=== PATIENT | female | born 1975 | race Caucasian/White ===

== ENCOUNTER 2020-11-04 06:12 | Outpatient (REF) | payer OTHER, SELFPAY ==
[2020-11-04 07:02] LABS: MANUAL DIFF FLAG NO
[2020-11-04 07:12] LABS: Basophils Percent Auto 0.6 % (0-2); Eosinophils Absolute Auto 0.1 X10*3/uL (0.0-0.4); Eosinophils Percent Auto 2.2 % (0-4); Hematocrit 43.7 % (37-47); Hemoglobin 14.5 g/dl (12.0-16.0); Imm Gran Abs Auto 0.01 X10*3/uL (0.00-0.03); Imm Gran Pct Auto 0.2 % (0.0-0.4); Lymphocytes Absolute Auto 1.4 X10*3/uL (1.2-4.9); Lymphocytes Percent Auto 28.1 % (20-40); Mean Corpuscular HGB Conc 33.2 g/dl (31.0-35.0); Mean Corpuscular Hemoglobin 29.2 pg (27.0-33.0); Mean Corpuscular Volume 88.1 fL (80-98); Mean Platelet Volume 11.3 fL (9.4-12.3); Monocytes Absolute Auto 0.5 X10*3/uL (0.1-1.2); Monocytes Percent Auto 9.1 % (2-11); Neutrophils Percent Auto 59.8 % (45-73); Platelet Count 225 X10*3/uL (160-400); Red Blood Count 4.96 X10*6/uL (4.20-5.50); Red Cell Distribution Width 12.2 % (11.0-16.0); White Blood Count 5.1 X10*3/uL (4.8-10.8)
[2020-11-04 07:15] LABS: Prothrombin Time 11.5 SEC (10.8-13.0)
[2020-11-04 07:17] LABS: Partial Thromboplastin Time 43.4 SEC (24.1-38.0)
[2020-11-04 07:56] LABS: HBc Num1 0.09 S/CO (0.00-0.79); HBsAGNum1 0.29 S/CO (0.00-0.99); HIV AB/AG Nonreactive (Nonreactive); HIV Num 1 0.09 S/CO (0.00-0.99); Hepatitis B Core Antibody Nonreactive (Nonreactive); Hepatitis B Surface Antigen Negative (Negative); ~HepC Num1 0.14 S/CO (0.00-0.79); ~Hepatitis B Surface Antibody NONREACTIVE (Nonreactive); ~Hepatitis C Antibody Nonreactive (Nonreactive)
[2020-11-05 04:10] LABS: Hepatitis A Antibody IgM 0.12 Index (0-0.79); ~Hepatitis A Antibody IgM Nonreactive (Nonreactive)
[2020-11-10 13:11] LABS: Smooth Muscle Antibody <20 U (<20)
== END 2020-11-04 06:13 | disposition home or self-care (01) ==
LOC: HO.LAB 06:12
PROVIDERS: PCP Hospitalist; Visit Provider Plastic Surgery
DX: Z01.818 Encounter for other preprocedural examination (principal); Z20.822 Contact with and (suspected) exposure to COVID-19
CPT/HCPCS: 36415; 85025; 85610; 85730; 86255; 86704; 86706; 86709; 86803; 87340; 87389; U0003; U0005

== ENCOUNTER → 2021-02-02 09:44 | Outpatient (BNVA) | payer OTHER, SELFPAY | PROVIDERS: PCP Family Medicine; Visit Provider Surgery | DX: R19.09 Other intra-abdominal and pelvic swelling, mass and lump (principal) | CPT/HCPCS: 99202 ==

== ENCOUNTER 2021-02-23 08:21 | Outpatient (REF) | payer OTHER, SELFPAY ==
--- NOTE | 2021-02-23 08:35 | ECG_ITS ---
Test Reason : PREPROC EXAM Blood Pressure : / mmHG Vent. Rate : 087 BPM Atrial Rate : 087 BPM P-R Int : 118 ms QRS Dur : 090 ms QT Int : 338 ms P-R-T Axes : 058 043 029 degrees QTc Int : 406 ms Normal sinus rhythm Normal ECG No previous ECGs available Referred By: Talia Juárez Electronically Signed By:Chidi Javier
[2021-02-23 09:12] LABS: MANUAL DIFF FLAG NO
[2021-02-23 09:20] LABS: Basophils Percent Auto 0.5 % (0-2); Eosinophils Absolute Auto 0.1 X10*3/uL (0.0-0.4); Eosinophils Percent Auto 2.5 % (0-4); Hematocrit 42.5 % (37-47); Hemoglobin 14.1 g/dl (12.0-16.0); Lymphocytes Absolute Auto 1.2 X10*3/uL (1.2-4.9); Lymphocytes Percent Auto 21.5 % (20-40); Mean Corpuscular HGB Conc 33.2 g/dl (31.0-35.0); Mean Corpuscular Hemoglobin 28.8 pg (27.0-33.0); Mean Corpuscular Volume 86.7 fL (80-98); Mean Platelet Volume 11.3 fL (9.4-12.3); Monocytes Absolute Auto 0.4 X10*3/uL (0.1-1.2); Monocytes Percent Auto 6.6 % (2-11); Neutrophils Absolute Auto 3.8 X10*3/uL (2.0-8.3); Neutrophils Percent Auto 68.9 % (45-73); Platelet Count 205 X10*3/uL (160-400); Red Cell Distribution Width 12.3 % (11.0-16.0); White Blood Count 5.6 X10*3/uL (4.8-10.8)
[2021-02-23 09:22] LABS: Prothrombin Time 11.8 SEC (10.8-13.0)
[2021-02-23 09:26] LABS: Partial Thromboplastin Time 44.5 SEC (24.1-38.0)
[2021-02-23 10:07] LABS: HBS Num1 0.27 mIU/mL (0-7.99); HIV AB/AG Nonreactive (Nonreactive); HIV Num 1 0.05 S/CO (0.00-0.99); Hepatitis A Antibody IgM 0.15 Index (0-0.79); Hepatitis B Core Antibody Nonreactive (Nonreactive); ~HepC Num1 0.12 S/CO (0.00-0.79); ~Hepatitis A Antibody IgM Nonreactive (Nonreactive); ~Hepatitis B Surface Antibody NONREACTIVE (Nonreactive); ~Hepatitis C Antibody Nonreactive (Nonreactive)
[2021-02-23 10:14] LABS: HBsAGNum1 0.24 S/CO (0.00-0.99); Hepatitis B Surface Antigen Negative (Negative)
== END 2021-02-23 08:22 | disposition home or self-care (01) ==
LOC: HO.LAB 08:21
PROVIDERS: PCP Family Medicine; Visit Provider Plastic Surgery
DX: Z01.812 Encounter for preprocedural laboratory examination (principal)
CPT/HCPCS: 36415; 85025; 85610; 85730; 86704; 86706; 86709; 86803; 87340; 87389; 93005

== ENCOUNTER 2021-03-24 08:27 | Outpatient (REF) | payer OTHER, SELFPAY ==
--- NOTE | ~2021-03-24 | CT_ITS ---
EXAMINATION: CT ABDOMEN WITHOUT CONTRAST CLINICAL INFORMATION: Intra-abdominal and pelvic swelling, mass or lump COMPARISON: None TECHNIQUE: Contiguous axial thin section helical images of the abdomen were performed without contrast. The data set was reformatted in the coronal and sagittal planes and reviewed on an independent workstation. This CT examination was performed using dose optimization techniques as appropriate, variously including the following: *Automated exposure control *Adjustment of mA and/or kV according to patient size (this includes techniques or standardized protocols for targeted exams where dose is matched to indication/reason for exam; i.e. extremities or head) *Use of iterative reconstruction technique DLP: 232 mGy-cm FINDINGS: LUNG BASES: The lung bases are clear. LIVER, GALLBLADDER, BILIARY TREE: Normal. PANCREAS: Normal SPLEEN: Normal ADRENAL GLANDS AND KIDNEYS: Normal. BOWEL LOOPS: There is stool throughout the colon questionable for constipation. Small and large bowel is otherwise unremarkable. There is no evidence of obstruction. The appendix is not seen. The stomach is filled with food. There are postsurgical changes to the anterior abdominal wall. No hernia is seen. LYMPH NODES: Normal. VASCULAR: Unremarkable. BONES: There is degenerative disc disease at L5-S1. CT/CT abdomen wo con IMPRESSION: No mass seen. Large amount of stool in the colon suggestive of constipation. Otherwise unremarkable exam.
== END 2021-03-24 08:28 | disposition home or self-care (01) ==
LOC: HO.CT 08:27
PROVIDERS: Visit Provider Surgery
DX: R19.09 Other intra-abdominal and pelvic swelling, mass and lump (principal)
CPT/HCPCS: 74150

== ENCOUNTER 2021-05-05 09:24 | Outpatient (REF) | payer OTHER, SELFPAY ==
[2021-05-05 11:26] LABS: MANUAL DIFF FLAG NO
[2021-05-05 11:37] LABS: Basophils Percent Auto 0.6 % (0-2); Eosinophils Absolute Auto 0.1 X10*3/uL (0.0-0.4); Eosinophils Percent Auto 1.9 % (0-4); Hematocrit 40.3 % (37-47); Hemoglobin 13.2 g/dl (12.0-16.0); Imm Gran Abs Auto 0.01 X10*3/uL (0.00-0.03); Imm Gran Pct Auto 0.2 % (0.0-0.4); Lymphocytes Absolute Auto 1.1 X10*3/uL (1.2-4.9); Lymphocytes Percent Auto 23.8 % (20-40); Mean Corpuscular HGB Conc 32.8 g/dl (31.0-35.0); Mean Corpuscular Hemoglobin 29.1 pg (27.0-33.0); Mean Platelet Volume 11.9 fL (9.4-12.3); Monocytes Absolute Auto 0.3 X10*3/uL (0.1-1.2); Monocytes Percent Auto 6.1 % (2-11); Neutrophils Absolute Auto 3.2 X10*3/uL (2.0-8.3); Neutrophils Percent Auto 67.4 % (45-73); Platelet Count 211 X10*3/uL (160-400); Red Blood Count 4.53 X10*6/uL (4.20-5.50); Red Cell Distribution Width 12.2 % (11.0-16.0); White Blood Count 4.8 X10*3/uL (4.8-10.8)
[2021-05-05 11:41] LABS: Prothrombin Time 11.5 SEC (9.9-13.0)
[2021-05-05 12:04] LABS: Alanine Aminotransferase 16 U/L (0-31); Albumin Level 4.2 g/dL (3.5-5.0); Alkaline Phosphatase 79 U/L (39-117); Anion Gap 12 (12-20); Aspartate Amino Transferase 18 U/L (5-31); Bilirubin Total 0.7 mg/dL (0.0-1.0); Blood Urea Nitrogen 12 mg/dL (9-16); Calcium 9.3 mg/dL (8.4-10.2); Carbon Dioxide 28 mmol/L (22-29); Chloride 105 mmol/L (96-108); Estimated Glomerular Filt Rate > 60; Glucose Random 100 mg/dL (60-115); Potassium 4.4 mmol/L (3.3-5.1); Sodium 141 mmol/L (135-145); Total Protein 7.1 g/dL (6.5-8.0)
[2021-05-05 12:24] LABS: HBS Num1 0.28 mIU/mL (0-7.99); ~Hepatitis B Surface Antibody NONREACTIVE (Nonreactive)
[2021-05-05 12:52] LABS: HBc Num1 0.22 S/CO (0.00-0.79); HBsAGNum1 0.17 S/CO (0.00-0.99); HIV AB/AG Nonreactive (Nonreactive); HIV Num 1 0.06 S/CO (0.00-0.99); Hepatitis B Core Antibody Nonreactive (Nonreactive); Hepatitis B Surface Antigen Negative (Negative); ~HepC Num1 0.22 S/CO (0.00-0.79); ~Hepatitis C Antibody Nonreactive (Nonreactive)
[2021-05-12 01:16] LABS: HPV mRNA E6/E7 rflx Not Detected (Not Detected)
== END 2021-05-05 09:25 | disposition home or self-care (01) ==
LOC: HO.WFDLDS 09:24
PROVIDERS: Visit Provider Family Medicine
DX: Z01.810 Encounter for preprocedural cardiovascular examination (principal); Z11.3 Encounter for screening for infections with a predominantly sexual mode of transmission
CPT/HCPCS: 36415; 80053; 85025; 85610; 85730; 86704; 86706; 86803; 87340; 87389; 87624; 88142

== ENCOUNTER 2022-02-23 06:42 | Outpatient (REF) | payer OTHER, SELFPAY ==
--- NOTE | ~2022-02-23 | XR_ITS ---
EXAMINATION: XR CHEST CLINICAL INFORMATION: Cough COMPARISON: None TECHNIQUE: 2 views of the chest were obtained. FINDINGS: No significant abnormality is noted involving the heart, lungs, mediastinum, bony thorax or soft tissues. XR/XR chest 2V IMPRESSION: Unremarkable examination.
== END 2022-02-23 06:43 | disposition home or self-care (01) ==
LOC: HO.XRAY 06:42
PROVIDERS: PCP Family Medicine; Visit Provider Family Medicine
DX: R05.9 Cough, unspecified (principal); J45.909 Unspecified asthma, uncomplicated
CPT/HCPCS: 71046

== ENCOUNTER 2022-04-05 13:27 | Outpatient (REF) | payer OTHER, SELFPAY | END 2022-04-05 13:28 | disposition home or self-care (01) | LOC: HO.LNP 13:27 | PROVIDERS: Visit Provider Hospitalist | DX: J02.9 Acute pharyngitis, unspecified (principal) | CPT/HCPCS: 87071 ==

== ENCOUNTER 2023-03-23 11:37 | Outpatient (REF) | payer OTHER, SELFPAY | END 2023-03-23 11:38 | disposition home or self-care (01) | LOC: HO.LAB 11:37 | PROVIDERS: Visit Provider Nurse Practitioner Family | DX: Z13.89 Encounter for screening for other disorder (principal) ==

== ENCOUNTER 2023-03-23 14:10 | Outpatient (REF) | payer OTHER, SELFPAY ==
[2023-03-23 15:18] LABS: Appearance Urine Cloudy; Color Urine Yellow; Glucose Urine UA Negative (Negative); Leukocyte Esterase Urine Large (3+) (Negative); Nitrite Urine Negative (Negative); Specific Gravity - Urine <= 1.005 (1.005-1.025); UMIC TRIGGER UACC YES; Urine Blood Small (1+) (Negative); Urine Ketones Negative (Negative); Urine Protein Negative (Neg-Trace)
[2023-03-23 15:34] LABS: Bacteria Urine 2+ (None Seen); Hyaline Casts Urine 0-2 /LPF (0-2); UACC Culture Trigger YES; WBC Urine 21-50 /HPF (0-5)
== END 2023-03-23 14:11 | disposition home or self-care (01) ==
LOC: HO.LNP 14:10
PROVIDERS: Visit Provider Nurse Practitioner Family
DX: R39.9 Unspecified symptoms and signs involving the genitourinary system (principal)
CPT/HCPCS: 81001; 81003; 87086; 87088; 87186

== ENCOUNTER 2023-07-03 09:48 | Outpatient (AMB) | payer OTHER, SELFPAY ==
--- NOTE | 2023-07-03 09:22 | MHC.PC.OV ---
Vital Signs 07/03/23 09:52 Height 5 ft 3 in Weight 154 lb 4 oz BMI 27.3 BP 100/70 Blood Pressure Location Lt brachial Position Sitting Respiration 13 Pulse 91 Pulse Source Pulse Oximeter Temp 97 F Temp Source Temporal Artery Scan Pulse Oximetry (%) 99 Oxygen Delivery Method Room Air Intake Visit Reasons: itching and burning Intake Note: Patient states that she woke up and was experiencing a vaginal itch and burn. Patienty states she everything OTC and nothing has worked. Relocation Coordinator Required: No Accompanied by: Self / Same As Patient Allergies Sulfa (Sulfonamide Antibiotics) [SULFA (SULFONAMIDE ANTIBIOTICS)] Allergy (Unknown, Verified 07/03/23 10:21) UNKNOWN cats Allergy (Unknown, Uncoded 07/03/23 10:21) hives dairy Allergy (Unknown, Uncoded 07/03/23 10:21) Diarrhea Medication List - Last Reconciled 07/03/23 by Juanita Lay CNP albuterol sulfate 90 mcg/actuation (ProAir HFA) 2 puffs inhalation Q4-6H PRN 1 month Flovent HFA 110 mcg/actuation (fluticasone propionate) 1 puff inhalation Q12H NS fluticasone propionate 50 mcg/actuation (Flonase Allergy Relief) 1 spray intranasal Q12H 30 days meloxicam 15 mg PO DAILY 30 days silver sulfadiazine 1% (Silvadene) 1 appl topical BID 10 days Tobacco use date assessed: 07/03/23 Dental Screening Dental Screen Date: 07/03/23 Did you have a dental visit in the last 12 months?: Yes Did you have a dental problem in the last 6 months where you did not have access to dental care?: No Was dental information given to patient?: Patient has dentist HPI HPI Comments History of Present Illness Details 48-year-old female presents with complaints of vaginal burning and intense itching. Her symptoms have been ongoing for the past 3 days and have not responded to [id number] remedies including Monistat. She notes she was recently treated for UTI with Augmentin. No pain/burning with urination, no blood in the urine, no urinary frequency, urgency, or hesitancy. No vaginal discharge. No fever, chills, body aches, fatigue, or weakness. She was treated for UTI on 03/23/2023 with Macrobid. [facility] Medical History Umbilical mass Surgical History History of tonsillectomy History of abdominoplasty H/O section Family History Other Mental health disorder Substance abuse Social History Housing: House Alcohol intake: never Patient Tobacco Use Status: Former Tobacco user e-Cigarette/Vaping Use: Never Used Second Hand Smoke Exposure: No service: No Current occupational status: employed Current occupational exposures/hazards: No Cognitive needs: No Hearing needs: No Vision needs: No Questionnaire GURVINDER-7 AMB Questionnaire GURVINDER-7 Date GURVINDER - 7 assessed: 02/22/22 Source: Developed by Drs. Reggie Rivas, Roberta Ibarra, Kee Vazquez and colleagues, with an educational jude from [employer]. Review of Systems Const Details: Const Denies chills, Denies fatigue, Denies fever(s), Denies headache(s) and Denies weakness ENT Denies dizziness and Denies headache(s) Card Denies chest pain, Denies lightheadedness, Denies dyspnea and Denies other (Palpitations) Resp Denies cough, Denies dyspnea, Denies wheezing and Denies other ( shortness of breath) GI Denies abdominal pain, Denies melena, Denies hematochezia, Denies change in bowel habits, Denies dyspepsia and Denies nausea Reports as per HPI Musc Denies abnormal gait, Denies myalgias, Denies arthralgias, Denies numbness and Denies tingling Skin/Breast Denies rash, Denies unusual bruising and Denies wounds Neuro Denies abnormal gait, Denies dizziness, Denies headache(s), Denies memory loss, Denies numbness, Denies Sensory deficit (Neuro), Denies tingling and Denies weakness Psych Denies anxiety, Denies depression, Denies memory loss Endo Denies cold intolerance, Denies fatigue, Denies heat intolerance, Denies polydipsia and Denies polyuria Aller/Immun Denies wheezing Physical exam (Primary Care) Vital Signs: Last Vital Signs Temp 97 F 07/03/23 09:52 Pulse 91 07/03/23 09:52 Resp 13 07/03/23 09:52 BP 100/70 07/03/23 09:52 Pulse Ox 99 07/03/23 09:52 Oxygen Delivery Method Room Air 07/03/23 09:52 BMI result Body Mass Index 27.3 Tobacco/Smoking Status: Tobacco use Status Tobacco use date assessed 07/03/23 07/03/23 10:00 Patient Tobacco Use Status Former Tobacco user 07/03/23 10:00 e-Cigarette/Vaping Use Never Used 07/03/23 09:22 Const Other: General: no acute distress and well developed Nutritional Appearance: well nourished Orientation/consciousness: patient oriented x3 HENMT Head: Yes normocephalic and Yes atraumatic Eyes General: appearance normal, both eyes and all related structures Pupils: Equal, round and reactive pupils present EOM: EOMs intact bilaterally Resp Effort & Inspection: normal respiratory effort Auscultation: clear to auscultation bilaterally Cardio Rate: regular rate Rhythm: regular rhythm Heart sounds: S1 normal heart sound present, S2 normal heart sound present, no gallops, no murmurs and no rubs GI Palpation (GI): No Abdominal aortic bruit present, Soft to palpation, nontender, No hepatosplenomegaly present and No Rebound tenderness present Auscultation: normal bowel sounds General: Yes no CVA tenderness Back/Spine/Pelvis Back: no CVA tenderness Cervical Spine: cervical ROM normal and No Cervical spine tenderness Thoracic/Lumbar Spine: thoraco-lumbar ROM normal, No pain with thoraco-lumbar ROM, No thoracic spinal tenderness and No lumbar spinal tenderness Extrem General: Yes normal to inspection, No edema and No calf tenderness Skin General: warm and dry. Normal skin color. Normal skin turgor Neuro General: patient oriented x3, gait normal and no focal neuro deficit Cranial nerves: Yes Equal, round and reactive pupils present Cognition (Neuro): normal cognition Gait exam (Neuro): Normal gait present Sensory Exam: No Sensory deficit (Neuro) Psych Appearance: grossly normal Affect: normal affect Attitude: cooperative Thought process: Normal thought process present Assessment and Plan Assessment & Plan (1) Itching of vagina: Code(s): N89.8 - Other specified noninflammatory disorders of vagina Plan: Patient present with 3 days of vaginal burning and intense itching. Her symptoms have been refractory to [id number] remedies including Monistat. No urinary frequency, urgency, hesitancy, dysuria, hematuria. No pain with urination. Urinalysis is unrevealing. Likely vaginal candidiasis. Fluconazole ordered. Take as prescribed. Will send urine to the lab for urinalysis and culture. Will review results and make changes to the care plan as needed. Return with worsening or new symptoms. Verbalized understanding and agreed with treatment plan. (2) Vaginal burning: Code(s): N94.9 - Unspecified condition associated with female genital organs and menstrual cycle Plan: As noted Orders: Orders UA CC w/rflx Micro + Cult Today N89.8 - Other specified noninflammatory disorders of vagina, N94.9 - Unspecified condition associated with female genital organs and menstrual cycle AMB Urinalysis Dipstick Today N89.8 - Other specified noninflammatory disorders of vagina, N94.9 - Unspecified condition associated with female genital organs and menstrual cycle Medications: New fluconazole (Diflucan) may repeat second dose 72 hrs after first dose if symptoms persist 150 mg PO Q3D 2 tabs 0RF Coding Level of Care Code Est Pt Level 2 (67113) Diagnoses Itching of vagina N89.8 Vaginal burning N94.9
[2023-07-03 09:52] VITALS: BP 100/70; PULSE 91; RESP 13; TEMP 36.1; O2SAT 99; BMI 27.3
== END 2023-07-03 10:45 | disposition home or self-care (01) ==
PROVIDERS: PCP Family Medicine; Visit Provider Nurse Practitioner Family
DX: N89.8 Other specified noninflammatory disorders of vagina (principal); N94.9 Unspecified condition associated with female genital organs and menstrual cycle
CPT/HCPCS: 99213

== ENCOUNTER 2023-07-03 10:24 | Outpatient (REF) | payer OTHER, SELFPAY | END 2023-07-03 10:25 | disposition home or self-care (01) | LOC: HO.LAB 10:24 | PROVIDERS: Visit Provider Nurse Practitioner Family | DX: I10 Essential (primary) hypertension (principal) | CPT/HCPCS: 81001; 82570; 87086 ==

== ENCOUNTER 2023-09-25 10:31 | Outpatient (AMB) | payer OTHER, SELFPAY ==
--- NOTE | 2023-09-25 10:33 | MHC.PC.OV ---
Vital Signs 09/25/23 10:34 Height 5 ft 3 in Weight 154 lb 6 oz BMI 27.3 BP 122/80 Blood Pressure Location Rt brachial Position Sitting Respiration 13 Pulse 88 Pulse Source Pulse Oximeter Temp 97.3 F Temp Source Temporal Artery Scan Pulse Oximetry (%) 99 Oxygen Delivery Method Room Air Intake Visit Reasons: Sinus Infection [facility] [phone] School Photographer Required: No Accompanied by: Self / Same As Patient Allergies Sulfa (Sulfonamide Antibiotics) [SULFA (SULFONAMIDE ANTIBIOTICS)] Allergy (Unknown, Verified 09/25/23 10:47) UNKNOWN cats Allergy (Unknown, Uncoded 09/25/23 10:47) hives dairy Allergy (Unknown, Uncoded 09/25/23 10:47) Diarrhea Medication List - Last Reconciled 09/25/23 by Juanita Lay CNP albuterol sulfate 90 mcg/actuation (ProAir HFA) 2 puffs inhalation Q4-6H PRN 1 month conjugated estrogens 0.625 mg vaginal DAILY 30 days Flovent HFA 110 mcg/actuation (fluticasone propionate) 1 puff inhalation Q12H NS fluconazole (Diflucan) 150 mg PO Q3D 2 doses fluticasone propionate 50 mcg/actuation (Flonase Allergy Relief) 1 spray intranasal Q12H 30 days meloxicam 15 mg PO DAILY 30 days silver sulfadiazine 1% (Silvadene) 1 appl topical BID 10 days Tobacco use date assessed: 07/03/23 Dental Screening Dental Screen Date: 09/25/23 Did you have a dental visit in the last 12 months?: Yes Did you have a dental problem in the last 6 months where you did not have access to dental care?: No Was dental information given to patient?: Patient has dentist HPI HPI Comments History of Present Illness Details 48 y/o female presents with c/o intermittent nonproductive cough, nasal congestion, difficulty breathing, and frontal and maxillary sinus pressure. She notes that her symptoms haven been ongoing for over 2 weeks and has progressively worsened. She reports positive contacts with RSV. She reports hot/cold flashes, fatigue, and weakness. No headache, fever, chills, or body aches. Her symptoms have been refractory to sudafed and mucinex. 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 Reggie Rivas, Roberta Ibarra, Kee Vazquez and colleagues, with an educational jude from [employer]. Review of Systems Const Details: Const Denies chills, Reports fatigue, Denies fever(s), Denies headache(s) and Denies weakness ENT Reports as per HPI Card Denies chest pain, Denies lightheadedness, Denies dyspnea and Denies other (Palpitations) Resp Reports cough, Reports dyspnea, Denies wheezing GI Denies abdominal pain, Denies melena, Denies hematochezia, Denies change in bowel habits, Denies dyspepsia and Denies nausea Denies hematuria and Denies dysuria Musc Denies abnormal gait, Denies myalgias, Denies arthralgias, Denies numbness and Denies tingling Skin/Breast Denies rash, Denies unusual bruising and Denies wounds Neuro Denies abnormal gait, Denies dizziness, Denies headache(s), Denies memory loss, Denies numbness, Denies Sensory deficit (Neuro), Denies tingling and Denies weakness Psych Denies anxiety, Denies depression, Denies memory loss Endo Denies cold intolerance, Reports fatigue, Denies heat intolerance, Denies polydipsia and Denies polyuria Aller/Immun Denies wheezing Physical exam (Primary Care) Vital Signs: Last Vital Signs Temp 97.3 F 09/25/23 10:34 Pulse 88 09/25/23 10:34 Resp 13 09/25/23 10:34 BP 122/80 09/25/23 10:34 Pulse Ox 99 09/25/23 10:34 Oxygen Delivery Method Room Air 09/25/23 10:34 BMI result Body Mass Index 27.3 Tobacco/Smoking Status: Tobacco use Status Tobacco use date assessed 07/03/23 09/25/23 10:41 Patient Tobacco Use Status Former Tobacco user 09/25/23 10:41 e-Cigarette/Vaping Use Never Used 09/25/23 10:41 Const Other: General: no acute distress and well developed Nutritional Appearance: well nourished Orientation/consciousness: patient oriented x3 HENMT Head is normocephalic Bilateral ear canal and TM are normal Nasal turbinates and oropharynx are pink and moist Sinuses are tender to palpation No auricular or cervical lymphadenopathy Eyes General: appearance normal, both eyes and all related structures Pupils: Equal, round and reactive pupils present EOM: EOMs intact bilaterally Resp Effort & Inspection: normal respiratory effort Auscultation: clear to auscultation bilaterally Cardio Rate: regular rate Rhythm: regular rhythm Heart sounds: S1 normal heart sound present, S2 normal heart sound present, no gallops, no murmurs and no rubs GI Palpation (GI): No Abdominal aortic bruit present, Soft to palpation, nontender, No hepatosplenomegaly present and No Rebound tenderness present Auscultation: normal bowel sounds General: Yes no CVA tenderness Back/Spine/Pelvis Back: no CVA tenderness Cervical Spine: cervical ROM normal and No Cervical spine tenderness Thoracic/Lumbar Spine: thoraco-lumbar ROM normal, No pain with thoraco-lumbar ROM, No thoracic spinal tenderness and No lumbar spinal tenderness Extrem General: Yes normal to inspection, No edema and No calf tenderness Skin General: warm and dry. Normal skin color. Normal skin turgor Neuro General: patient oriented x3, gait normal and no focal neuro deficit Cranial nerves: Yes Equal, round and reactive pupils present Cognition (Neuro): normal cognition Gait exam (Neuro): Normal gait present Sensory Exam: No Sensory deficit (Neuro) Psych Appearance: grossly normal Affect: normal affect Attitude: cooperative Thought process: Normal thought process present Assessment and Plan Assessment & Plan (1) Viral upper respiratory illness: Code(s): J06.9 - Acute upper respiratory infection, unspecified Plan: Likely viral illness though possibly allergies Superimposed bacterial sinus infection is possible Viral illness There is no antibiotic medication for viruses.? They must run their course.? Most average 5-7 days but 7-10 days is not uncommon and up to 14 days is still possible.? A cough is often the last symptom to resolve and this can last for weeks in some cases. Rest Hydrate well -? Drink plenty of fluids.? Especially water. Tylenol or ibuprofen for muscle aches, headache, fever/discomfort Benzonatate as prescribed Cannot rule out COVID-19/RSV/Flu infection Nasal swab acquired and will be sent to the lab Return for new or worsening symptoms Verbalized understanding and agreed with treatment plan. (2) Sinus infection: Code(s): J32.9 - Chronic sinusitis, unspecified Plan: Frontal and maxillary sinuses are tender to palpation Augmentin ordered. Take as prescribed May take Tylenol or ibuprofen for pain or discomfort Adequate hydration encouraged Continue to use asthma inhalers as prescribed Return with worsening or new symptoms Verbalized understanding and agreed with treatment plan Orders: Orders SARS-CoV2/FLU/RSV Today R09.89 - Other specified symptoms and signs involving the circulatory and respiratory systems Medications: New amoxicillin-pot clavulanate 500-125 mg (Augmentin) 1 tab PO Q8H 21 tabs 0RF 7 days benzonatate 200 mg PO BID PRN 20 caps 0RF cough Coding Level of Care Code Tele Est Pt Level 3 (45863) Diagnoses Viral upper respiratory illness J06.9 Sinus infection J32.9
[2023-09-25 10:34] VITALS: BP 122/80; PULSE 88; RESP 13; TEMP 36.3; O2SAT 99; BMI 27.3
== END 2023-09-25 11:00 | disposition home or self-care (01) ==
PROVIDERS: PCP Family Medicine; Visit Provider Nurse Practitioner Family
DX: J06.9 Acute upper respiratory infection, unspecified (principal); J32.9 Chronic sinusitis, unspecified
CPT/HCPCS: 99213

== ENCOUNTER 2023-09-25 11:10 | Outpatient (REF) | payer OTHER, SELFPAY ==
[2023-09-25 15:56] LABS: Influenza A PCR NEGATIVE (Negative); Influenza B PCR NEGATIVE (Negative); Resp Syncy Virus RNA Qual PCR NEGATIVE (Negative); SARS COV2 PCR INHOUSE NEGATIVE (Negative)
== END 2023-09-25 11:11 | disposition home or self-care (01) ==
LOC: HO.LAB 11:10
PROVIDERS: Visit Provider Nurse Practitioner Family
DX: R09.89 Other specified symptoms and signs involving the circulatory and respiratory systems (principal); Z11.52 Encounter for screening for COVID-19; Z20.828 Contact with and (suspected) exposure to other viral communicable diseases
CPT/HCPCS: 0241U

== ENCOUNTER 2023-10-04 09:01 | Outpatient (AMB) | payer OTHER, SELFPAY ==
--- NOTE | 2023-10-04 09:13 | A.OFFPC_ITS ---
Vital Signs 10/04/23 09:14 Height 5 ft 3 in Weight 148 lb BMI 26.2 BP 120/74 Blood Pressure Location Lt brachial Position Sitting Pulse 85 Pulse Source Pulse Oximeter Pulse Oximetry (%) 97 Oxygen Delivery Method Room Air Intake Visit Reasons: Extended exam with f/u labs and health maintenance Intake Note: Patient is here for extended exam and follow up on labs, she will get her labs done today. Allergies Sulfa (Sulfonamide Antibiotics) [SULFA (SULFONAMIDE ANTIBIOTICS)] Allergy (Unknown, Verified 10/04/23 09:17) UNKNOWN cats Allergy (Unknown, Uncoded 10/04/23 09:17) hives dairy Allergy (Unknown, Uncoded 10/04/23 09:17) Diarrhea Medication List - Last Reconciled 10/04/23 by Anthony Clifford MD albuterol sulfate 90 mcg/actuation (ProAir HFA) 2 puffs inhalation Q4-6H PRN 1 month benzonatate 200 mg PO BID PRN conjugated estrogens 0.625 mg vaginal DAILY 30 days Flovent HFA 110 mcg/actuation (fluticasone propionate) 1 puff inhalation Q12H NS fluconazole (Diflucan) 150 mg PO Q3D 2 doses fluticasone propionate 50 mcg/actuation (Flonase Allergy Relief) 1 spray intranasal Q12H 30 days meloxicam 15 mg PO DAILY 30 days silver sulfadiazine 1% (Silvadene) 1 appl topical BID 10 days Tobacco use date assessed: 07/03/23 HPI Extended exam with f/u labs and health maintenance HPI Details 48 y/o female presents for an extended e xam with f/u labs and health maintenance. No recent labs to review. Had recently seen Juanita Lay for intermittent nonproductive cough, nasal congestion, difficulty breathing and sinus pressure 09/25/23. Negative for influenza, covid and RSV. Pt reports respiratory symptoms improved. She reports she has not had a colonoscopy yet. Pt has not had a mammogram. 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 Reggie Rivas, Roberta Ibarra, Kee Vazquez and colleagues, with an educational jude from [employer]. Review of Systems Const Denies chills, Denies fatigue, Denies fever(s), Denies headache(s) and Denies weakness Eyes Denies change in vision ENT Denies dizziness, Denies headache(s), Denies hearing loss, Denies nasal congestion, Denies sinus pain, Denies sinus pressure and Denies sore throat Card Denies chest pain, Denies lightheadedness, Denies dyspnea and Denies other (palpitations) Resp Denies cough, Denies dyspnea and Denies wheezing GI Denies abdominal pain, Denies melena, Denies hematochezia, Denies change in bowel habits, Denies dyspepsia and Denies nausea Denies hematuria and Denies dysuria Musc Denies abnormal gait, Denies myalgias, Denies arthralgias, Denies numbness and Denies tingling Skin/Breast Denies rash, Denies unusual bruising and Denies wounds Neuro Denies abnormal gait, Denies dizziness, Denies headache(s), Denies memory loss, Denies numbness, Denies Sensory deficit (Neuro), Denies tingling and Denies weakness Psych Denies anxiety, Denies depression and Denies memory loss Endo Denies cold intolerance, Denies fatigue, Denies heat intolerance, Denies polydipsia and Denies polyuria Lee/Lymph Denies easy bleeding and Denies easy bruising Aller/Immun Denies wheezing Physical exam (Primary Care) Vital Signs: Last Vital Signs Pulse 85 10/04/23 09:14 BP 120/74 10/04/23 09:14 Pulse Ox 97 10/04/23 09:14 Oxygen Delivery Method Room Air 10/04/23 09:14 BMI result Body Mass Index 26.2 Tobacco/Smoking Status: Tobacco use Status Tobacco use date assessed 07/03/23 10/04/23 09:15 Patient Tobacco Use Status Former Tobacco user 10/04/23 09:15 e-Cigarette/Vaping Use Never Used 10/04/23 09:15 Const General: no acute distress, well developed, alert and awake Nutritional Appearance: well nourished Orientation/consciousness: patient oriented x3 HENMT Head: Yes normocephalic and Yes atraumatic Ears: hearing grossly normal bilaterally and TM's normal bilaterally General nose exam: Normal external nose present and Normal nares present Mouth: Normal oral and palatal mucosa present and moist mucous membranes Teeth and gingiva: dentition normal Throat: Yes posterior oropharynx normal Eyes General: appearance normal, both eyes and all related structures Pupils: Equal, round and reactive pupils present and Pupil accommodation reflex normal EOM: EOMs intact bilaterally Neck Neck: Yes normal visual inspection, Yes no lymphadenopathy and Yes trachea midline Thyroid: Thyroid normal Carotids: no bruits Lymphatic: no lymphadenopathy noted Chest Chest palpation & inspection: normal inspection of the chest Resp Effort & Inspection: normal respiratory effort Auscultation: clear to auscultation bilaterally Cardio Rate: regular rate Rhythm: regular rhythm Heart sounds: S1 normal heart sound present, S2 normal heart sound present, no gallops, no murmurs and no rubs Bruits: no abdominal aortic bruits and no carotid bruits GI Palpation (GI): No Abdominal aortic bruit present, Soft to palpation, nontender, No hepatosplenomegaly present and No Rebound tenderness present Auscultation: normal bowel sounds General: Yes no CVA tenderness Back/Spine/Pelvis Back: no CVA tenderness Cervical Spine: cervical ROM normal and No Cervical spine tenderness Thoracic/Lumbar Spine: thoraco-lumbar ROM normal, No pain with thoraco-lumbar ROM, No thoracic spinal tenderness and No lumbar spinal tenderness Skin Lesions: no lesions Rashes: no rashes Trauma: no lacerations or abrasions Wounds: no wounds Nails: normal Neuro General: patient oriented x3 Cranial nerves: Yes Equal, round and reactive pupils present Cognition (Neuro): normal cognition Gait exam (Neuro): Normal gait present Motor exam (neuro): 5/5 motor strength present throughout Sensory Exam: No Sensory deficit (Neuro) Deep tendon reflexes (DTR's): Right patellar reflex intensity grade: 2+ and Left patellar reflex intensity grade: 2+ Extrem General: Yes normal to inspection and No edema Psych Appearance: grossly normal Affect: normal affect Attitude: cooperative Thought process: Normal thought process present Assessment and Plan Assessment & Plan (1) Immunization counseling: Code(s): Z71.85 - Encounter for immunization safety counseling Plan: 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 Has?had?Tdap,?influenza?and?COVID?on?record. Her?school?only?requires?meningococcal?for?student?16?through?21?years?of?age. No?record?of?MMR?or?varicella?so?we?are?checking?titers Hepatitis-B?surface?antigen?was?negat tereza?so?starting?hep?B?series?and?she?can?get?her?2nd?hep?B?vaccine?in?minimum?of ?4?weeks.??Third?vaccine?at?16?weeks. 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 (4) Breast cancer screening by mammogram: Code(s): Z12.31 - Encounter for screening mammogram for malignant neoplasm of breast Plan: Has?never?had?a?mammogram Ordered (5) Annual physical exam: Code(s): Z00.00 - Encounter for general adult medical examination without abnormal findings Plan: 48-year-old?female?presents?for?an?extended?exam Encouraged?ongoing?healthy?diet?and?active?lifestyle?with?plenty?of?exercise. Orders: Orders MMR IgG Measles Mumps Rubella Today Z71.85 - Encounter for immunization safety counseling Varicella IgG Antibody Today Z71.85 - Encounter for immunization safety counseling Hepatitis B Adult Immunization Today Z23 - Encounter for immunization, Z71.85 - Encounter for immunization safety counseling MM tomosynthesis screening BI Today Z12.31 - Encounter for screening mammogram for malignant neoplasm of breast Referrals Gastroenterology Referral Z12.11 - Encounter for screening for malignant neoplasm of colon Medications: New Recombivax HB (PF) (hepatitis B virus vacc.rec(PF)) 1.0 mL IM ONCE 1 mL 0RF NS Z23 - Encounter for immunization, Z71. - Encounter for immunization safety counseling Coding Level of Care Code Est Pt Level 4 (23157) Diagnoses Immunization counseling Z71. Screening for colon cancer Z12.11 Screening for cervical cancer Z12.4 Breast cancer screening by mammogram Z12.31 Annual physical exam Z00.00
[2023-10-04 09:14] VITALS: BP 120/74; PULSE 85; O2SAT 97; BMI 26.2
== END 2023-10-04 10:01 | disposition home or self-care (01) ==
PROVIDERS: PCP Family Medicine; Visit Provider Family Medicine
DX: Z00.00 Encounter for general adult medical examination without abnormal findings (principal); Z71.85 Encounter for immunization safety counseling; Z12.11 Encounter for screening for malignant neoplasm of colon; Z23 Encounter for immunization
CPT/HCPCS: 90471; 90746; 99396

== ENCOUNTER 2023-10-04 10:14 | Outpatient (REF) | payer OTHER, SELFPAY ==
[2023-10-04 12:08] LABS: Appearance Urine Cloudy; Color Urine Yellow; Glucose Urine UA Negative (Negative); Leukocyte Esterase Urine Trace (Negative); Nitrite Urine Negative (Negative); PH 5.5 (5.0-9.0); UMIC TRIGGER UA YES; Urine Blood Negative (Negative); Urine Ketones Negative (Negative); Urine Protein Negative (Neg-Trace)
[2023-10-04 12:17] LABS: Bacteria Urine None Seen (None Seen); Hyaline Casts Urine 0-2 /LPF (0-2); RBC Urine 0-2 /HPF (0-2); Squamous Epithelial Cell Urine >20 /HPF (0-2); WBC Urine 0-5 /HPF (0-5)
[2023-10-04 15:13] LABS: Alanine Aminotransferase 11 U/L (0-31); Albumin Level 4.3 g/dL (3.5-5.0); Alkaline Phosphatase 85 U/L (39-117); Anion Gap 11 (12-20); Aspartate Amino Transferase 16 U/L (5-31); Bilirubin Total 0.6 mg/dL (0.0-1.0); Blood Urea Nitrogen 10 mg/dL (9-16); Carbon Dioxide 28 mmol/L (22-29); Chloride 106 mmol/L (96-108); Cholesterol 161 mg/dL (<200); Estimated Glomerular Filt Rate > 60; Glucose Fasting 91 mg/dL (60-99); HDL Cholesterol 44 mg/dL (>40); LDL Cholesterol Calculated 97 mg/dL (<100); Potassium 4.6 mmol/L (3.3-5.1); Sodium 140 mmol/L (135-145); Total Protein 7.7 g/dL (6.5-8.0); Triglycerides 104 mg/dL (<150)
== END 2023-10-04 10:15 | disposition home or self-care (01) ==
LOC: HO.WFDLDS 10:14
PROVIDERS: Visit Provider Family Medicine
DX: Z00.00 Encounter for general adult medical examination without abnormal findings (principal); Z13.220 Encounter for screening for lipoid disorders; Z13.29 Encounter for screening for other suspected endocrine disorder
CPT/HCPCS: 36415; 80053; 80061; 81001; 81003; 84443; 86735; 86762; 86765; 86787

== ENCOUNTER 2023-11-02 08:47 | Outpatient (AMB) | payer OTHER, SELFPAY ==
--- NOTE | 2023-11-02 09:22 | MHC.OFFWIV ---
Intake Intake Visit Reasons: Hep B/T-Dap Booster Intake Note: Patient is here for hep B, TDAP booster Patient Tobacco Use Status: Former Tobacco user Allergies Sulfa (Sulfonamide Antibiotics) [SULFA (SULFONAMIDE ANTIBIOTICS)] Allergy (Unknown, Verified 10/04/23 09:17) UNKNOWN cats Allergy (Unknown, Uncoded 10/04/23 09:17) hives dairy Allergy (Unknown, Uncoded 10/04/23 09:17) Diarrhea Do you need a note to return to daycare/school/sports/work: No PFSH Medical History Umbilical mass Surgical History History of tonsillectomy History of abdominoplasty H/O section Family History Other Mental health disorder Substance abuse Social History Housing: House Alcohol intake: never Patient Tobacco Use Status: Former Tobacco user e-Cigarette/Vaping Use: Never Used Second Hand Smoke Exposure: No service: No Current occupational status: employed 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
--- NOTE | 2023-11-02 15:35 | MHC.OFFWIV ---
Intake Intake Visit Reasons: Hep B/T-Dap Booster Patient Tobacco Use Status: Former Tobacco user Allergies Sulfa (Sulfonamide Antibiotics) [SULFA (SULFONAMIDE ANTIBIOTICS)] Allergy (Unknown, Verified 10/04/23 09:17) UNKNOWN cats Allergy (Unknown, Uncoded 10/04/23 09:17) hives dairy Allergy (Unknown, Uncoded 10/04/23 09:17) Diarrhea PFSH Medical History Umbilical mass Surgical History History of tonsillectomy History of abdominoplasty H/O section Family History Other Mental health disorder Substance abuse Social History Housing: House Alcohol intake: never Patient Tobacco Use Status: Former Tobacco user e-Cigarette/Vaping Use: Never Used Second Hand Smoke Exposure: No service: No Current occupational status: employed 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
--- NOTE | 2023-11-02 16:37 | AM.OFFVISNUR ---
Intake Intake Visit Reasons: Hep B/T-Dap Booster Allergies Sulfa (Sulfonamide Antibiotics) [SULFA (SULFONAMIDE ANTIBIOTICS)] Allergy (Unknown, Verified 10/04/23 09:17) UNKNOWN cats Allergy (Unknown, Uncoded 10/04/23 09:17) hives dairy Allergy (Unknown, Uncoded 10/04/23 09:17) Diarrhea Coding Assessment & Plan Assessment & Plan Orders: Orders Hepatitis B Adult Immunization Today Z23 - Encounter for immunization Medications: New Recombivax HB (PF) (hepatitis B virus vacc.rec(PF)) 1.0 mL IM ONCE 1 mL 0RF NS Z23 - Encounter for immunization
--- NOTE | 2023-11-02 16:41 | AM.OFFVISNUR ---
Intake Intake Visit Reasons: Hep B/T-Dap Booster Allergies Sulfa (Sulfonamide Antibiotics) [SULFA (SULFONAMIDE ANTIBIOTICS)] Allergy (Unknown, Verified 10/04/23 09:17) UNKNOWN cats Allergy (Unknown, Uncoded 10/04/23 09:17) hives dairy Allergy (Unknown, Uncoded 10/04/23 09:17) Diarrhea Immunizations Engerix-B (PF) 20 mcg/mL intramuscular syringe Performing Provider: Anthony Clifford MD Performing Location: [facility] Administered by: Uzma Castro CMA on 11/02/23 16:44 Dose Route Admin Location Dispensed Lot Number Expiration Date [facility] Bluing Oven Tender 1 mL IM Left Deltoid 1 mL [id number] 02/24/24 96224-259-05 [employer] VIS Given Date VIS Provided VIS Publication Date 11/02/23 Single Vaccine 23 Eligibility Eligibility Date Funding Source Not VFC Eligible 11/02/23 Private Boostrix Tdap 2.5 Lf unit-8 mcg-5 Lf/0.5 mL intramuscular syringe Performing Provider: Anthony Clifford MD Performing Location: [facility] Administered by: Uzma Castro CMA on 11/02/23 16:48 Dose Route Admin Location Dispensed Lot Number Expiration Date [facility] Bluing Oven Tender 0.5 mL IM Right Deltoid 0.5 mL [id number] 08/29/25 [id number] [employer] VIS Given Date VIS Provided VIS Publication Date 11/02/23 Single Vaccine 21 Eligibility Eligibility Date Funding Source Not VFC Eligible 11/02/23 Private Coding Assessment & Plan Assessment & Plan Orders: Orders TDaP Immunization Today Z23 - Encounter for immunization Hepatitis B Adult Immunization Today Z23 - Encounter for immunization
== END 2023-11-02 10:13 | disposition home or self-care (01) ==
PROVIDERS: PCP Family Medicine; Visit Provider Family Medicine
DX: Z23 Encounter for immunization (principal)
CPT/HCPCS: 90471; 90472; 90715; 90746

== ENCOUNTER 2023-11-08 16:01 | Outpatient (AMB) | payer OTHER, SELFPAY ==
--- NOTE | 2023-11-08 15:43 | A.OFFPC_ITS ---
Intake Visit Reasons: f/u CPE-labs Intake Note: Pt presents to the office today as a telehealth appt for follow up labs. Pt states since she had her Hepatitis B vaccine she has been having severe migraines which havent gone away. She is also looking for you to order her a Hep B titer. Allergies Sulfa (Sulfonamide Antibiotics) [SULFA (SULFONAMIDE ANTIBIOTICS)] Allergy (Unknown, Verified 11/08/23 15:43) UNKNOWN cats Allergy (Unknown, Uncoded 11/08/23 15:43) hives dairy Allergy (Unknown, Uncoded 11/08/23 15:43) Diarrhea Tobacco use date assessed: 11/08/23 Dental Screening Dental Screen Date: 11/08/23 Did you have a dental visit in the last 12 months?: Yes Did you have a dental problem in the last 6 months where you did not have access to dental care?: No Was dental information given to patient?: Patient has dentist HPI f/u CPE-labs HPI Details Telemedicine?encounter?to?review?CPE-labs?and?discuss?immunizations Reviewed?labs?with?patient?and?all?labs?are?okay Titers?for?measles,?mumps,?rubella?and?varicella?all?show?immunity Hepatitis?lab?work?did?not?show?immunity?and?patient?is?in?the?process?of?eleonora g?her?vaccine?series.??Has?now?had #1 and # 2 vaccine?in?series. 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 1. Little interest or pleasure in doing things: not at all 2. Feeling down, depressed, or hopeless: not at all 3. Trouble falling or staying asleep, or sleeping too much: not at all 4. Feeling tired or having little energy: not at all 5. Poor appetite or overeating: not at all 6. Feeling bad about yourself - or that you are a failure or have let yourself or your family down: not at all 7. Trouble concentrating on things, such as reading the newspaper or watching television: not at all 8. Moving or speaking so slowly that other people could have noticed. Or the opposite - being so fidgety or restless that you have been moving around a lot more than usual: not at all 9. Thoughts that you would be better off or of hurting yourself in some way: not at all Total score: 0 Source: Developed by Drs. Reggie Rivas, Roberta Ibarra, Kee Vazquez and colleagues, with an educational jude from [employer]. Thrive Questionnaire Date Thrive assessed: 11/08/23 I am a: Patient What is your living situation today?: I have a steady place to live Within the past 12 months, did the food you bought not last and you didn't have the money to get more?: Never true Within the past 12 months, did you worry whether your food would run out before you got money to buy more?: Never true Do you have trouble paying for medicines?: No Do you have trouble getting transportation to medical appointments?: No Do you have trouble paying your heating and electricity bill?: No Do you have trouble taking care of your child, family member or friend?: No Do you have trouble with day-to-day activities such as bathing, preparing meals, shopping, managing finances, etc.?: No Are you currently unemployed and looking for a job?: No Are you interested in more education?: No THRIVE Score: 0 AUDIT C Alcohol Use Questionnaire (AUDIT-C) 1. How often do you have a drink containing alcohol?: Never 3. How often do you have six or more drinks on one occasion?: Never Total Score: 0 GURVINDER-7 AMB Questionnaire GURVINDER-7 Date GURVINDER - 7 assessed: 11/08/23 Feeling nervous, anxious, or on edge: 0 = Not at all Not being able to stop or control worryin = Not at all Worrying too much about different things: 0 = Not at all Trouble relaxin = Not at all Being so restless that it is hard to sit still: 0 = Not at all Becoming easily annoyed or irritable: 0 = Not at all Feeling afraid as if something awful might happen: 0 = Not at all Total GURVINDER-7 score (0-4 normal; 5-9 mild; 10-14 moderate; 15-21 severe): 0 Source: Developed by Drs. Reggie Rivas, Roberta Ibarra, Kee Vazquez and colleagues, with an educational jude from [employer]. Review of Systems Const Denies chills, Denies fatigue, Denies fever(s), Denies headache(s) and Denies weakness ENT Denies dizziness and Denies headache(s) Card Denies chest pain, Denies lightheadedness, Denies dyspnea and Denies other (Palpitations) Resp Denies cough, Denies dyspnea, Denies wheezing and Denies other ( shortness of breath) Musc Denies numbness and Denies tingling Neuro Denies dizziness, Denies headache(s), Denies numbness, Denies tingling, Denies paresthesias and Denies weakness Psych Denies anxiety and Denies depression Endo Denies fatigue Aller/Immun Denies wheezing Physical exam (Primary Care) Tobacco/Smoking Status: Tobacco use Status Tobacco use date assessed 11/08/23 11/08/23 15:46 Patient Tobacco Use Status Former Tobacco user 11/08/23 15:46 e-Cigarette/Vaping Use Never Used 11/08/23 15:46 PHQ-9: PHQ-9 Score PHQ-9: Total score 0 11/08/23 15:48 Thrive Assessment: Date of Thrive Assessment Date Thrive assessed 11/08/23 11/08/23 15:46 Telehealth Telehealth Location of provider rendering services: practice address Location of patient: address on file Patient Identification confirmed using: Name, : Yes Telehealth method: voice only Patient verbally consented to treatment: Yes Patient verbally consented to billing insurance company: Yes Patient informed of any privacy concerns related to visit: Yes Minutes spent on Phone/Video with Pt.: 8 Assessment and Plan Assessment & Plan (1) Immunization counseling: Code(s): Z71.85 - Encounter for immunization safety counseling Plan: Titers?for?measles,?mumps,?rubella?and?varicella?all?show?immunity Hepatitis?lab?work?did?not?show?immunity?and?patient?is?in?the?process?of?gettin g?her?vaccine?series.??Has?now?had #1 and # 2 vaccine?in?series. She?will?get?her?3rd?vaccine an?appropriate?time?which?I?recommend?as?6?months?from?start?of?series?though?CB C?states?this?can?be?done?as ?soon?as?16?weeks.??I?advised?she?check?with?her?school?to?ensure?she?is?complia nt?with?their rules. Titer?is?also?ordered?which?she?can?get?done?when?complete. Orders: Orders Hepatitis B,C Profile Today Z11.3 - Encounter for screening for infections with a predominantly sexual mode of transmission Coding Level of Care Code Tele Est Pt Level 2 (33159) Diagnoses Immunization counseling Z71.85
== END 2023-11-08 17:00 ==
LOC: HO.HMGFM 16:02
PROVIDERS: PCP Family Medicine; Visit Provider Family Medicine
DX: Z71.85 Encounter for immunization safety counseling (principal)
CPT/HCPCS: 99212

== ENCOUNTER 2023-11-09 07:49 | Outpatient (REF) | payer OTHER, SELFPAY ==
--- NOTE | ~2023-11-09 | MM_ITS ---
EXAMINATION: MM SCREENING DIGITAL BREAST TOMOSYNTHESIS, BILATERAL CLINICAL INFORMATION: Screening. Asymptomatic. COMPARISON: Mammography: There are no prior mammograms for comparison. TECHNIQUE: Digital breast tomosynthesis is performed in both the craniocaudal and mediolateral oblique views along with computer-aided detection (CAD). Synthesized 2D images are generated from the tomosynthesis. FINDINGS: There are scattered areas of fibroglandular density (ACR BI-RADS breast composition Category b). There are no significant masses, abnormal calcifications, or other abnormalities. MM/MM tomosynthesis screening BI IMPRESSION: No mammographic evidence of malignancy. ASSESSMENT: BI-RADS BI-RADS 1 - Negative RECOMMENDATION: Routine annual mammography screening. 1 year F/U This examination should not preclude the clinical evaluation of a suspicious palpable abnormality. This patient's information was entered into a reminder system with a target due date for their next mammogram.
== END 2023-11-09 07:50 | disposition home or self-care (01) ==
LOC: HO.MAMMO 07:49
PROVIDERS: PCP Family Medicine; Visit Provider Family Medicine
DX: Z12.31 Encounter for screening mammogram for malignant neoplasm of breast (principal)
CPT/HCPCS: 77063; 77067

== ENCOUNTER → 2023-11-09 08:00 | Outpatient (BNV) | payer OTHER, SELFPAY | PROVIDERS: PCP Family Medicine; Visit Provider Radiology Diagnostic Radiology | DX: Z12.31 Encounter for screening mammogram for malignant neoplasm of breast (principal) | CPT/HCPCS: 77063; 77067 ==

== ENCOUNTER 2023-11-23 08:03 | Outpatient (AMB) | payer OTHER, SELFPAY ==
--- NOTE | 2023-11-23 08:09 | MHC.OFFVIS ---
Intake Vital Signs 11/23/23 08:12 Height 5 ft 3 in Weight 150 lb BMI 26.6 BP 136/65 Blood Pressure Location Lt brachial Position Sitting Pulse 87 Intake Visit Reasons: Colonoscopy screening Intake Note: Chelsi presents in the office as a new patient colonoscopy. CC: No concerns today! Not interested in having a colonoscopy. Allergies Sulfa (Sulfonamide Antibiotics) [SULFA (SULFONAMIDE ANTIBIOTICS)] Allergy (Unknown, Verified 11/23/23 08:10) UNKNOWN cats Allergy (Unknown, Uncoded 11/23/23 08:10) hives dairy Allergy (Unknown, Uncoded 11/23/23 08:10) Diarrhea HPI Colonoscopy screening HPI Details 48-year-old female here for preprocedural meeting to discuss a screening colonoscopy. She is referred by Anthony Clifford of [facility] primary care. PMX Asthma Umbilical mass * SURGICAL HISTORY Tonsillectomy Abdominoplasty Repair of abdominal musculature section * ALLERGIES Sulfa * [employer] LABS: Laboratory Tests 10/04/23 10:24 Estimated GFR > 60 Total Bilirubin 0.6 AST 16 ALT 11 Alkaline Phosphata se 85 TSH 1.10 TODAY'S VISIT UPON presentation she declines colonoscopy and says she would like a Cologuard screening. I am uncertain why she was referred to our service since this could have been ordered by her primary care provider. However we will order this for her and I will see her in 8 weeks to go over the results. [facility] Medical History (Updated 12/05/23 @ 10:01 by AFSHIN Yañez) Screening for colon cancer Immunization counseling Viral upper respiratory illness Vaginal burning Itching of vagina Lower urinary tract symptoms (LUTS) Sore throat Cough Sinus infection Screening for cervical cancer Breast cancer screening by mammogram Annual physical exam Burn Preop cardiovascular exam Umbilical mass Surgical History History of tonsillectomy History of abdominoplasty H/O section Family History Other Mental health disorder Substance abuse Social History Housing: House Alcohol intake: never Patient Tobacco Use Status: Former Tobacco user e-Cigarette/Vaping Use: Never Used Second Hand Smoke Exposure: No service: No Current occupational status: employed 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 Current occupational exposures/hazards: No Cognitive needs: No Hearing needs: No Vision needs: No Review of Systems Const Denies fatigue, Denies fever(s), Denies night sweats, Denies poor appetite and Denies weight loss Eyes Details: glasses Reports requires corrective lenses ENT Reports Normal hearing present, Denies dental pain, Denies dysphagia, Denies hearing loss, Denies mouth pain, Denies odynophagia, Denies throat swelling, Denies tongue swelling and Reports other (Dentition adequate) Card Reports no additional complaints Resp Reports no additional complaints GI Details: Denies abdominal pain, Denies melena, Denies bloating, Denies hematochezia, Denies constipation, Denies GI cramping, Denies dysphagia, Denies excessive flatus, Denies early satiety, Denies heartburn, Denies diarrhea, Denies nausea, Denies odynophagia, Denies vomiting and Denies hematemesis Skin/Breast Denies pruritus, Denies lesions, Denies rash and Denies jaundice Neuro Reports Normal hearing present and Denies Abnormal speech present Endo Denies fatigue Aller/Immun Denies throat swelling and Denies tongue swelling Physical Exam Vital Signs: Last Vital Signs Pulse 87 11/23/23 08:12 BP 136/65 11/23/23 08:12 BMI result Body Mass Index 26.6 Const General: cooperative, no acute distress, well developed and well groomed Nutritional Appearance: average body habitus and well nourished Orientation/consciousness: oriented to person, oriented to place and oriented to time Limitations: No language barrier HEENT Head: Yes normocephalic and Yes atraumatic Eyes General: appearance normal, both eyes and all related structures Pupils: Equal, round and reactive pupils present Resp Effort & Inspection: normal respiratory effort and able to speak in complete sentences Neuro General: oriented to person, oriented to place and oriented to time Cranial nerves: Yes Equal, round and reactive pupils present and Yes Normal hearing present Speech: No Abnormal speech present Psych Appearance: grossly normal and well kempt Mental Status: mental status grossly normal Speech and movement: Normal speech and movement present Affect: normal affect Attitude: cooperative Thought process: Normal thought process present and not confabulating Thought content: Normal thought content present Insight: Limited insight present (Psych) Judgement: Limited judgement present (Psych) Assessment & Plan Assessment & Plan (1) Screening for colon cancer: Code(s): Z12.11 - Encounter for screening for malignant neoplasm of colon Plan UPON presentation she declines colonoscopy and says she would like a Cologuard screening. I am uncertain why she was referred to our service since this could have been ordered by her primary care provider. However we will order this for her and I will see her in 8 weeks to go over the results. Coding Level of Care Code New Pt Level 3 (92317) Diagnoses Screening for colon cancer Z12.11
[2023-11-23 08:12] VITALS: BP 136/65; PULSE 87; BMI 26.6
== END 2023-11-23 08:41 | disposition home or self-care (01) ==
PROVIDERS: PCP Family Medicine; Visit Provider Nurse Practitioner
DX: Z12.11 Encounter for screening for malignant neoplasm of colon (principal); Z01.818 Encounter for other preprocedural examination
CPT/HCPCS: 99203

== ENCOUNTER → 2023-11-23 08:03 | Outpatient (BNVA) | payer OTHER, SELFPAY | PROVIDERS: PCP Family Medicine; Visit Provider Nurse Practitioner | DX: Z12.11 Encounter for screening for malignant neoplasm of colon (principal) | CPT/HCPCS: 99202 ==

== ENCOUNTER → 2024-01-25 09:00 | Outpatient (AMB) | payer OTHER, SELFPAY ==
--- NOTE | 2024-01-25 09:19 | AM.OFFVISNUR ---
Intake Intake Visit Reasons: hepatitis B vaccine 3rd dose Allergies Sulfa (Sulfonamide Antibiotics) [SULFA (SULFONAMIDE ANTIBIOTICS)] Allergy (Unknown, Verified 11/23/23 08:10) UNKNOWN cats Allergy (Unknown, Uncoded 11/23/23 08:10) hives dairy Allergy (Unknown, Uncoded 11/23/23 08:10) Diarrhea Immunizations Engerix-B (PF) 20 mcg/mL intramuscular syringe Performing Provider: Anthony Clifford MD Performing Location: [facility] Administered by: Sheila Starkey RN on 01/25/24 09:22 Dose Route Admin Location Dispensed Lot Number Expiration Date NDC Claims Adjuster 1 mL IM Left Deltoid 1 mL [id number] 08/30/24 [id number] [facility] VIS Given Date VIS Provided VIS Publication Date 01/25/24 Single Vaccine 23 Eligibility Eligibility Date Funding Source Not [facility] Eligible 01/25/24 Private Coding Assessment & Plan Assessment & Plan Orders: Orders Hepatitis B Adult Immunization Today Z23 - Encounter for immunization Medications: New Engerix-B (PF) (hepatitis B virus vacc.rec(PF)) 1 mL IM ONCE 1 mL 0RF NS Z23 - Encounter for immunization
== END ==
PROVIDERS: PCP Family Medicine; Visit Provider Family Medicine
DX: Z23 Encounter for immunization (principal)
CPT/HCPCS: 90471; 90746

== ENCOUNTER → 2024-01-25 09:14 | Outpatient (AMB) | payer OTHER, SELFPAY ==
--- NOTE | 2024-01-25 09:23 | MHC.OFFWIV ---
Intake Vital Signs 01/25/24 09:24 Height 5 ft 3 in Weight 153 lb 3 oz BMI 27.1 BP 111/67 Blood Pressure Location Rt brachial Position Sitting Pulse 78 Pulse Source Pulse Oximeter Temp 97.9 F Temp Source Temporal Artery Scan Pulse Oximetry (%) 98 Intake Visit Reasons: possible sinus infection Intake Note: Patient is here with sinus infection symptoms for 2 weeks. Patient Tobacco Use Status: Former Tobacco user Allergies Sulfa (Sulfonamide Antibiotics) [SULFA (SULFONAMIDE ANTIBIOTICS)] Allergy (Unknown, Verified 01/25/24 09:30) UNKNOWN cats Allergy (Unknown, Uncoded 01/25/24 09:25) hives dairy Allergy (Unknown, Uncoded 01/25/24 09:25) Diarrhea Medication List - Last Reconciled 01/25/24 by SALINA Eddy-MARNI albuterol sulfate 90 mcg/actuation (ProAir HFA) 2 puffs inhalation Q4-6H PRN 1 month budesonide 90 mcg/actuation (Pulmicort Flexhaler) 1 inh inhalation Q12H 30 days Flovent HFA 110 mcg/actuation (fluticasone propionate) 1 puff inhalation Q12H NS fluticasone propionate 50 mcg/actuation (Flonase Allergy Relief) 1 spray intranasal Q12H 30 days silver sulfadiazine 1% (Silvadene) 1 appl topical BID 10 days Do you need a note to return to daycare/school/sports/work: No HPI HPI Comments History of Present Illness Details Here today with concerns for sinus infection Sx started two weeks ago Sx are facial pressure, palate pain, dental pain and sinus headache Used OTC meds w/o relief PFSH Medical History (Updated 01/25/24 @ 09:33 by SALINA Eddy-MARNI) Screening for colon cancer Immunization counseling Viral upper respiratory illness Vaginal burning Itching of vagina Lower urinary tract symptoms (LUTS) Sore throat Cough Sinus infection Screening for cervical cancer Breast cancer screening by mammogram Annual physical exam Burn Preop cardiovascular exam Umbilical mass Surgical History History of tonsillectomy History of abdominoplasty H/O section Family History Other Mental health disorder Substance abuse Social History Housing: House Alcohol intake: never Patient Tobacco Use Status: Former Tobacco user e-Cigarette/Vaping Use: Never Used Second Hand Smoke Exposure: No service: No Current occupational status: employed 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 Current occupational exposures/hazards: No Cognitive needs: No Hearing needs: No Vision needs: No Review of Systems Const All systems reviewed & are unremarkable except as noted in HPI and below Physical Exam Vital Signs: Last Vital Signs Temp 97.9 F 01/25/24 09:24 Pulse 78 01/25/24 09:24 BP 111/67 01/25/24 09:24 Pulse Ox 98 01/25/24 09:24 BMI result Body Mass Index 27.1 Const Other: Awake alert NAD Sclera and conjunctiva clear bilat TM intact and clear bilat Nares w/ thick mucoid dc, turbinates pale and edematous, frontal and maxillary sinus tenderness bilat MMM, pharynx WNL RRR LS CTAB Assessment & Plan Assessment & Plan (1) Acute bacterial sinusitis: Code(s): J01.90 - Acute sinusitis, unspecified; B96.89 - Other specified bacterial agents as the cause of diseases classified elsewhere Plan: . Plan . Medications: New amoxicillin-pot clavulanate 875-125 mg 1 tab PO BID 7 days 14 tabs 0RF Refilled fluticasone propionate 50 mcg/actuation (Flonase Allergy Relief) administer into each nostril 1 spray intranasal Q12H 30 days 16 grams 2RF Patient Instructions: What Is It? Sinuses are air-filled spaces behind the bones of the upper face: between the eyes and behind the forehead, nose and cheeks. The lining of the sinuses are made up of cells with tiny hairs on their surfaces called cilia. Other cells in the lining produce mucus. The mucus traps germs and pollutants and the cilia push the mucus out through narrow sinus openings into the nose. When the sinuses become inflamed or infected, the mucus thickens and clogs the openings to one or more sinuses. Fluid builds up inside the sinuses causing increased pressure. Also bacteria can become trapped, multiply and infect the lining. This is sinusitis. Prevention There are some measures you can take to decrease your risk of developing sinusitis. If you smoke cigarettes, you should quit. The smoke can irritate nasal passageways and increase the likelihood of infection. Nasal allergies can trigger sinus infections, too. By identifying the allergen (the substance causing the allergic reaction) and avoiding it, you can help prevent sinusitis. If you have congestion from a cold or allergies, the following may help to reduce the risk of developing sinusitis: Drink lots of water. This thins nasal secretions and keeps mucous membranes moist. Use steam to soothe nasal passages. Breathe deeply while standing in a hot shower, or inhale the vapor from a basin filled with hot water while holding a towel over your head. Avoid blowing your nose with great force, which can push bacteria into the sinuses. Some doctors advise periodic home nasal washings to clear secretions. This may help prevent, and also treat, sinus infections. Treatment Many sinus infections improve without treatment. However, several medications may speed recovery and reduce the chance that an infection will become chronic. Decongestants - Congestion often triggers sinus infections, and decongestants can open the sinuses and allow them to drain. Several are available: Pseudoephedrine (Sudafed) is available without prescription, alone or in combination with other medications in multi-symptom cold and sinus remedies. Pseudoephedrine can cause insomnia, racing pulse and jitteriness. Do not use if you have high blood pressure or a heart condition. Phenylephrine (such as Sudafed PE) is an alternative avxv-yig-difendz oral decongestant. If you take products containing oral phenylephrine, check with the pharmacist to be certain there is no interaction with other medications you take. Oxymetazoline (AfrinArturo and others) and phenylephrine (Anderson-Synephrine and others) are found in nasal sprays. They are effective and may be less likely to cause the side effects seen with pseudoephedrine. However, using a nasal decongestant for more than three days can cause worse symptoms when you stop the medication. This is called the rebound effect. Antihistamines - These medications help to relieve the symptoms of nasal allergies that lead to inflammation and infections. However, some doctors advise against using antihistamines during a sinus infection because they can cause excessive drying and slow the drainage process. Bmjc-qhc-etgjvjl antihistamines include diphenhydramine (Benadryl and others), chlorpheniramine (Chlor-Trimeton and others) and loratadine (Claritin). Fexofenadine (Gladys) and cetrizine (Zyrtec) are available by prescription. Nasal steroids - Anti-inflammatory sprays such as mometasone (Nasonex) and fluticasone (Flonase), both available by prescription, reduce swelling of nasal membranes. Like antihistamines, nasal steroids can be most useful for those who have nasal allergies. Nasal steroids tend to produce less drying than antihistamines. Unlike nasal decongestants, nasal steroids can be used for prolonged periods. Saline nasal sprays - These salt-water sprays are safe to use and can provide some relief by adding moisture to the nasal passages, thinning mucus secretions and helping to flush out any bacteria that may be present. Pain relievers - Acetaminophen (Tylenol), ibuprofen (Advil, Motrin and others) or naproxen (Aleve) can be taken sinus pain. Antibiotics - Your doctor may prescribe an antibiotic if he or she suspects that a bacterial infection is causing your sinusitis. If you start taking an antibiotic, complete the entire course so that the infection is completely killed off. Not all cases of sinusitis require antibiotic treatment: Talk with your doctor about whether an antibiotic is right for you. Keep in mind that antibiotics can cause side effects, such as allergic reactions, rash and diarrhea. In addition, overusing antibiotics eventually leads to the spread of bacteria that no longer can be killed by the most commonly prescribed antibiotics. When To Call A Professional Contact a doctor if you experience facial pain along with a headache and fever, cold symptoms that last longer than seven to 10 days, or persistent green discharge from the nose. If your symptoms don't improve within a week of beginning treatment, call your doctor. Call sooner if symptoms are getting worse. If you have repeated bouts of acute sinusitis, you may have allergies or another treatable cause of sinus congestion. Ask your doctor for advice. Coding Level of Care Code Est Pt Level 3 (95769) Diagnoses Acute bacterial sinusitis J01.90; B96.89
[2024-01-25 09:24] VITALS: BP 111/67; PULSE 78; TEMP 36.6; O2SAT 98; BMI 27.1
== END ==
PROVIDERS: PCP Family Medicine; Visit Provider Nurse Practitioner Family
DX: J01.90 Acute sinusitis, unspecified (principal); B96.89 Other specified bacterial agents as the cause of diseases classified elsewhere
CPT/HCPCS: 99213

== ENCOUNTER 2024-02-29 08:57 | Outpatient (REF) | payer OTHER, SELFPAY ==
[2024-02-29 12:12] LABS: HBS Num1 > 1000.00 mIU/mL (0-7.99); HBc Num1 0.12 S/CO (0.00-0.79); HBsAGNum1 0.29 S/CO (0.00-0.99); Hepatitis B Core Antibody Nonreactive (Nonreactive); Hepatitis B Surface Antigen Negative (Negative); ~HepC Num1 0.14 S/CO (0.00-0.79); ~Hepatitis B Surface Antibody REACTIVE (Nonreactive); ~Hepatitis C Antibody Nonreactive (Nonreactive)
[2024-03-03 00:37] LABS: TS Negative Control Passed; TS Panel A 1; TS Panel B 0; TS Positive Control Passed; TSpotTB Negative (Negative)
== END 2024-02-29 08:58 | disposition home or self-care (01) ==
LOC: HO.WFDLDS 08:57
PROVIDERS: Visit Provider Family Medicine
DX: Z11.1 Encounter for screening for respiratory tuberculosis (principal); Z11.3 Encounter for screening for infections with a predominantly sexual mode of transmission
CPT/HCPCS: 36415; 86481; 86704; 86706; 86803; 87340

== ENCOUNTER → 2024-10-16 08:03 | Outpatient (BNVA) | payer OTHER, SELFPAY | PROVIDERS: PCP Family Medicine; Visit Provider Nurse Practitioner Family | DX: Z00.01 Encounter for general adult medical examination with abnormal findings (principal); L74.510 Primary focal hyperhidrosis, axilla; L60.0 Ingrowing nail; N36.8 Other specified disorders of urethra; J45.20 Mild intermittent asthma, uncomplicated; J01.90 Acute sinusitis, unspecified; B96.89 Other specified bacterial agents as the cause of diseases classified elsewhere | CPT/HCPCS: 96127; 96160; 99212; 99396 ==

== ENCOUNTER 2024-10-29 10:36 | Outpatient (REF) | payer OTHER, SELFPAY ==
[2024-10-29 15:34] LABS: Influenza A PCR NEGATIVE (Negative); Influenza B PCR NEGATIVE (Negative); Resp Syncy Virus RNA Qual PCR NEGATIVE (Negative); SARS COV2 PCR INHOUSE POSITIVE (Negative)
== END 2024-10-29 10:37 | disposition home or self-care (01) ==
LOC: HO.LAB 10:36
PROVIDERS: PCP Family Medicine; Visit Provider Family Medicine
DX: U07.1 COVID-19 (principal)
CPT/HCPCS: 0241U; 99212

== ENCOUNTER 2025-04-10 12:50 | Outpatient (AMB) | payer OTHER, SELFPAY ==
--- NOTE | 2025-04-10 13:11 | A.OFFPC_ITS ---
Vital Signs 04/10/25 13:15 Height 5 ft 3 in Weight 153 lb 8 oz BMI 27.2 BP 120/80 Blood Pressure Location Lt brachial Position Sitting Respiration 14 Pulse 99 Pulse Source Pulse Oximeter Temp 98.4 F Temp Source Oral Pulse Oximetry (%) 98 Oxygen Delivery Method Room Air Intake Visit Reasons: NCLEX form signature needed Intake Note: patient is scheduled to complete Investigator Welfare Required: No Allergies Sulfa (Sulfonamide Antibiotics) (SULFA (SULFONAMIDE ANTIBIOTICS)) Allergy (Unknown, Verified 04/10/25 13:15) UNKNOWN cats Allergy (Unknown, Uncoded 10/29/24 11:14) hives dairy Allergy (Unknown, Uncoded 10/29/24 11:14) Diarrhea Tobacco use date assessed: 11/08/23 Dental Screening Dental Screen Date: 11/08/23 HPI NCLEX form signature needed HPI Details 49 y/o female presents today for help fo r her NCLEX form. Patient needs physical form filled out along with Confirmation of TB test which I reviewed today Also needs confirmation of titers for MMR Also needs confirmation of diagnosis of dyslexia [facility] Medical History (Updated 04/10/25 @ 13:32 by Anthony Clifford MD) Screening for colon cancer Immunization counseling Viral upper respiratory illness Vaginal burning Itching of vagina Lower urinary tract symptoms (LUTS) Sore throat Cough Sinus infection Screening for cervical cancer Breast cancer screening by mammogram Annual physical exam Burn Preop cardiovascular exam Umbilical mass Surgical History History of tonsillectomy History of abdominoplasty H/O section Family History Other Mental health disorder Substance abuse Social History Housing: House Alcohol intake: never Patient Tobacco Use Status: Former Tobacco user e-Cigarette/Vaping Use: Never Used Second Hand Smoke Exposure: No service: No Current occupational status: employed 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 Current occupational exposures/hazards: No Cognitive needs: No Hearing needs: No Vision needs: No Questionnaire Thrive Questionnaire Date Thrive assessed: 10/10/24 I am a: Patient What is your living situation today?: I have a steady place to live Within the past 12 months, did the food you bought not last and you didn't have the money to get more?: Never true Within the past 12 months, did you worry whether your food would run out before you got money to buy more?: Never true Do you have trouble paying for medicines?: No Do you have trouble getting transportation to medical appointments?: No Do you have trouble paying your heating and electricity bill?: No Do you have trouble taking care of your child, family member or friend?: No Do you have trouble with day-to-day activities such as bathing, preparing meals, shopping, managing finances, etc.?: No Are you currently unemployed and looking for a job?: No Are you interested in more education?: No Please select the resources that you would like help with: None Currently or been in a relationship where the following occur: No concerns reported THRIVE Score: 0 AUDIT C Alcohol Use Questionnaire (AUDIT-C) 2. How many drinks containing alcohol do you have on a typical day when you are drinking?: 1 or 2 Total Score: 0 GURVINDER-7 AMB Questionnaire GURVINDER-7 Date GURVINDER - 7 assessed: 10/16/24 Source: Developed by Drs. Reggie Rivas, Roberta Ibarra, Kee Vazquez and colleagues, with an educational jude from [email or web address]. Review of Systems Const Denies chills, Denies fatigue, Denies fever(s), Denies headache(s) and Denies weakness ENT Denies dizziness and Denies headache(s) Card Denies dyspnea Resp Denies cough, Denies dyspnea, Denies wheezing and Denies other (shortness of breath) Musc Denies numbness and Denies tingling Neuro Denies dizziness, Denies headache(s), Denies numbness, Denies tingling and Denies weakness Psych Denies anxiety and Denies depression Endo Denies fatigue Aller/Immun Denies wheezing Physical exam (Primary Care) Vital Signs: Last Vital Signs Temp 98.4 F 04/10/25 13:15 Pulse 99 04/10/25 13:15 Resp 14 04/10/25 13:15 BP 120/80 04/10/25 13:15 Pulse Ox 98 04/10/25 13:15 Oxygen Delivery Method Room Air 04/10/25 13:15 BMI result Body Mass Index 27.2 Tobacco/Smoking Status: Tobacco use Status Tobacco use date assessed 11/08/23 04/10/25 13:13 Patient Tobacco Use Status Former Tobacco user 04/10/25 13:13 e-Cigarette/Vaping Use Never Used 04/10/25 13:13 Thrive Assessment: Date of Thrive Assessment Date Thrive assessed 10/10/24 04/10/25 13:13 Currently or been in a relationship where the following occur: No concerns reported Const General: well developed; No acute distress Nutritional Appearance: well nourished Orientation/consciousness: patient oriented x3 HENMT Head: Yes normocephalic and Yes atraumatic Eyes General: appearance normal, both eyes and all related structures Pupils: Equal, round and reactive pupils present EOM: EOMs intact bilaterally Resp Effort & Inspection: normal respiratory effort Neuro General: patient oriented x3 and gait normal Cranial nerves: Yes Equal, round and reactive pupils present Psych Affect: normal affect Coding Level of Care Code Est Pt Level 4 (67717) Diagnoses Reading disorder F81.0 Learning disorder F81.9 Dyslexia, developmental F81.0 Screening-pulmonary TB Z11.1 Assessment & Plan Assessment & Plan (1) Reading disorder: Code(s): F81.0 - Specific reading disorder Category: Medical (2) Learning disorder: Code(s): F81.9 - Developmental disorder of scholastic skills, unspecified Category: Medical (3) Dyslexia, developmental: Code(s): F81.0 - Specific reading disorder Category: Medical (4) Screening-pulmonary TB: Code(s): Z11.1 - Encounter for screening for respiratory tuberculosis Category: Medical Plan: PPD negative Reviewed report. Plan Letter from patient's disabilities coordinator/psychologist from her school confirms diagnosis of learning/reading disability dyslexia F81.0 Recommends 100% extra time/double time for taking examinations. Confirmed this and have filled out forms for patient. MMR titers all show immunity.
[2025-04-10 13:15] VITALS: BP 120/80; PULSE 99; RESP 14; TEMP 36.9; O2SAT 98; BMI 27.2
== END 2025-04-10 17:05 | disposition home or self-care (01) ==
LOC: HO.HMCFM 12:51
PROVIDERS: PCP Family Medicine; Visit Provider Family Medicine
DX: F81.0 Specific reading disorder (principal); F81.9 Developmental disorder of scholastic skills, unspecified; Z11.1 Encounter for screening for respiratory tuberculosis

== ENCOUNTER → 2025-04-10 12:50 | Outpatient (BNVA) | payer OTHER, SELFPAY | PROVIDERS: PCP Family Medicine; Visit Provider Family Medicine | DX: F81.0 Specific reading disorder (principal); Z11.1 Encounter for screening for respiratory tuberculosis | CPT/HCPCS: 99212 ==